=== PATIENT | female | born 2000 | race American Indian/Alaskan Native ===

== ENCOUNTER 2019-06-11 23:26 | Emergency (ER) | payer MEDICAID ==
--- NOTE | 2019-06-11 23:56 | EDM.PDOCBH ---
<OfficerDakota - Last Filed: 06/11/19 23:53> ED HPI GENERAL MEDICAL PROBLEM - General Chief Complaint: Drug or Alcohol Abuse Stated Complaint: EVAL Time Seen by Provider: 06/11/19 23:44 Source of Information: Reports: Patient, Police, RN Notes Reviewed History Limitations: Reports: Intoxication - History of Present Illness INITIAL COMMENTS - FREE TEXT/NARRATIVE: 19-year-old female presents emergency department with a complaint of hallucinations, she is brought in by law enforcement suspected using methamphetamines she recently had her children taken away the ER with family however she states there were 2 gentleman at her house lying in her bed waiting for her" however search by law enforcement revealed no evidence they did not find individuals meeting their descriptions. She is adamant that she did see these individuals concern for hallucination from law enforcement she does repeat the story to me as well. - Related Data Allergies Allergy/AdvReac Type Severity Reaction Status Date / Time No Known Allergies Allergy Verified 06/11/19 23:39 Home Meds: Home Meds . 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: - Past Surgical History Musculoskeletal Surgical History: Reports: Other (See Below) Other Musculoskeletal Surgeries/Procedures:: left clavicle fracture repair Social & Family History - Tobacco Use Smoking Status *Q: Current Every Day Smoker Years of Tobacco use: 5 Packs/Tins Daily: 0.5 - Caffeine Use Caffeine Use: Reports: Soda - Recreational Drug Use Recreational Drug Type: Reports: Marijuana/Hashish Recreational Drug Use Frequency: Weekly ED ROS GENERAL - Review of Systems Review Of Systems: See Below Constitutional: Reports: No Symptoms HEENT: Reports: No Symptoms Respiratory: Reports: No Symptoms Cardiovascular: Reports: No Symptoms GI/Abdominal: Reports: No Symptoms : Reports: No Symptoms Musculoskeletal: Reports: No Symptoms Skin: Reports: No Symptoms Neurological: Reports: Confusion Psychiatric: Reports: Hallucinations. Denies: Homicidal Ideation, Suicidal Ideation ED EXAM, BEHAVIORAL HEALTH - Physical Exam Exam: See Below Exam Limited By: No Limitations General Appearance: Alert, Anxious Eye Exam: Bilateral Eye: Normal Inspection Respiratory/Chest: No Respiratory Distress, Lungs Clear, Normal Breath Sounds, No Accessory Muscle Use, Chest Non-Tender Cardiovascular: Regular Rate, Rhythm, No Murmur GI/Abdominal: Soft, Non-Tender Psychiatric: Alert, Agitated, Visual Hallucinations. No: Homicidal Thoughts, Suicidal Thoughts, Auditory Hallucinations COURSE, BEHAVIORAL HEALTH COMP - Course Vital Signs: Last Vital Signs Temp 36.2 C 06/11/19 23:46 Pulse 127 H 06/11/19 23:46 Resp 18 06/11/19 23:46 BP 139/85 06/11/19 23:46 Pulse Ox 95 06/11/19 23:46 Orders, Labs, Meds: Active Orders 24 hr Category Date Time Status EKG Documentation Completion [RC] ASDIRECTED Care 06/11/19 23:52 Active EKG 12 Lead [EK] Stat Ther 06/11/19 23:52 Ordered Laboratory Tests 06/11/19 06/11/19 06/11/19 Range/Units 23:58 23:58 23:58 WBC 8.3 (4.5-11.0) K/uL RBC 4.71 (3.30-5.50) M/uL Hgb 13.6 (12.0-15.0) g/dL Hct 40.6 (36.0-48.0) % MCV 86 (80-98) fL MCH 29 (27-31) pg MCHC 34 (32-36) % Plt Count 312 (150-400) K/uL Neut % (Auto) 77 H (36-66) % Lymph % (Auto) 16 L (24-44) % [place] % (Auto) 7 H (2-6) % Eos % (Auto) 0 L (2-4) % Baso % (Auto) 0 (0-1) % Sodium 141 (140-148) mmol/L Potassium 3.1 L (3.6-5.2) mmol/L Chloride 103 (100-108) mmol/L Carbon Dioxide 23 (21-32) mmol/L Anion Gap 18.1 H (5.0-14.0) mmol/L BUN 20 H (7-18) mg/dL Creatinine 0.8 (0.6-1.0) mg/dL Est Cr Clr Drug Dosing 100.94 mL/min Estimated GFR (MDRD) > 60 (>60) Glucose 136 H (74-106) mg/dL Calcium 8.8 (8.5-10.1) mg/dL Total Bilirubin 0.9 (0.2-1.0) mg/dL AST 56 H (15-37) U/L ALT 130 H (12-78) U/L Alkaline Phosphatase 73 (46-116) U/L Total Protein 8.7 H (6.4-8.2) g/dL Albumin 4.5 (3.4-5.0) g/dL Globulin 4.2 H (2.3-3.5) g/dL Albumin/Globulin Ratio 1.1 L (1.2-2.2) Urine HCG, Qual Salicylates 2.1 (2.0-20.0) mg/dL Urine Opiates Screen (NEGATIVE) Ur Oxycodone Screen (NEGATIVE) Urine Methadone Screen (NEGATIVE) Ur Propoxyphene Screen (NEGATIVE) Acetaminophen 0.0 L (10.0-30.0) ug/mL Ur Barbiturates Screen (NEGATIVE) Ur Tricyclics Screen (NEGATIVE) Ur Phencyclidine Scrn (NEGATIVE) Ur Amphetamine Screen (NEGATIVE) U Methamphetamines Scrn (NEGATIVE) Urine MDMA Screen (NEGATIVE) U Benzodiazepines Scrn (NEGATIVE) U Cocaine Metab Screen (NEGATIVE) U Marijuana (THC) Screen (NEGATIVE) Ethyl Alcohol mg/dL 06/11/19 06/12/19 06/12/19 Range/Units 23:58 00:13 00:13 WBC (4.5-11.0) K/uL RBC (3.30-5.50) M/uL Hgb (12.0-15.0) g/dL Hct (36.0-48.0) % MCV (80-98) fL MCH (27-31) pg MCHC (32-36) % Plt Count (150-400) K/uL Neut % (Auto) (36-66) % Lymph % (Auto) (24-44) % [place] % (Auto) (2-6) % Eos % (Auto) (2-4) % Baso % (Auto) (0-1) % Sodium (140-148) mmol/L Potassium (3.6-5.2) mmol/L Chloride (100-108) mmol/L Carbon Dioxide (21-32) mmol/L Anion Gap (5.0-14.0) mmol/L BUN (7-18) mg/dL Creatinine (0.6-1.0) mg/dL Est Cr Clr Drug Dosing mL/min Estimated GFR (MDRD) (>60) Glucose (74-106) mg/dL Calcium (8.5-10.1) mg/dL Total Bilirubin (0.2-1.0) mg/dL AST (15-37) U/L ALT (12-78) U/L Alkaline Phosphatase (46-116) U/L Total Protein (6.4-8.2) g/dL Albumin (3.4-5.0) g/dL Globulin (2.3-3.5) g/dL Albumin/Globulin Ratio (1.2-2.2) Urine HCG, Qual Negative Salicylates (2.0-20.0) mg/dL Urine Opiates Screen Negative (NEGATIVE) Ur Oxycodone Screen Negative (NEGATIVE) Urine Methadone Screen Negative (NEGATIVE) Ur Propoxyphene Screen Negative (NEGATIVE) Acetaminophen (10.0-30.0) ug/mL Ur Barbiturates Screen Negative (NEGATIVE) Ur Tricyclics Screen Negative (NEGATIVE) Ur Phencyclidine Scrn Negative (NEGATIVE) Ur Amphetamine Screen Presumptive positive H (NEGATIVE) U Methamphetamines Scrn Presumptive positive H (NEGATIVE) Urine MDMA Screen Presumptive positive H (NEGATIVE) U Benzodiazepines Scrn Negative (NEGATIVE) U Cocaine Metab Screen Negative (NEGATIVE) U Marijuana (THC) Screen Presumptive positive H (NEGATIVE) Ethyl Alcohol < 3 mg/dL Medications Discontinued Medications Generic Name Dose Route Start Last Admin Trade Name Freq PRN Reason Stop Dose Admin Diphenhydramine HCl 50 mg 06/12/19 01:11 06/12/19 05:29 Benadryl IM 06/12/19 01:12 Not Given ONETIME ONE Haloperidol 5 mg 06/12/19 01:11 06/12/19 05:29 Haldol PO 06/12/19 01:12 Not Given ONETIME ONE Lorazepam 1 mg 06/11/19 23:56 06/12/19 01:19 Ativan IM 06/11/19 23:57 1 mg ONETIME ONE Administration Lorazepam 2 mg 06/12/19 01:11 06/12/19 05:29 Ativan PO 06/12/19 01:12 Not Given ONETIME ONE Departure - Departure Disposition: Home, Self-Care 01 Clinical Impression: Hallucinations, Illicit drug use - Discharge Information Referrals: PCP,None [Primary Care Provider] - Forms: ED Department Discharge Additional Instructions: Avoid use of any dangerous, non prescription medications. Seek help with your provider if needed. Sepsis Event Note - Evaluation Sepsis Screening Result: No Definite Risk - Focused Exam Vital Signs: Vital Signs Temp Pulse Resp BP Pulse Ox 06/11/19 23:46 36.2 C 127 H 18 139/85 95 06/11/19 23:43 36.2 C 127 H 18 139/85 95 Date Exam was Performed: 06/11/19 Time Exam was Performed: 23:53 <Les Fontana G - Last Filed: 06/12/19 09:16> COURSE, BEHAVIORAL HEALTH COMP - Course Re-Assessment/Re-Exam Time: 09:15 Departure - Departure Time of Disposition: 09:15 Condition: Good - Discharge Information *PRESCRIPTION DRUG MONITORING PROGRAM REVIEWED*: Not Applicable *COPY OF PRESCRIPTION DRUG MONITORING REPORT IN PATIENT EULALIO: Not Applicable Sepsis Event Note - Focused Exam Date Exam was Performed: 06/12/19 Time Exam was Performed: 09:14
[2019-06-12] MEDS: LORazepam 2 MG/ML SDV IM ONE ×2 (00:22→01:19)
[2019-06-12] MEDS: diphenhydrAMINE 50 MG/ML SDV IM ONE ×2 (01:16→05:29)
[2019-06-12] MEDS: LORazepam 1 MG Tab PO ONE ×2 (01:16→05:29)
[2019-06-12] MEDS: Haloperidol 5 MG Tab PO ONE ×2 (01:16→05:29)
== END 2019-06-12 09:37 | disposition home or self-care (01) ==
LOC: JP.ED 23:26
DX: R44.3 Hallucinations, unspecified (principal); F15.90 Other stimulant use, unspecified, uncomplicated; I10 Essential (primary) hypertension; F17.210 Nicotine dependence, cigarettes, uncomplicated
CPT/HCPCS: 36415; 80053; 80305; 80307; 81025; 85025; 93005; 96372; 99285; J2060; A9270-GY; J1200